=== PATIENT | female | born 1995 | race Caucasian/White ===

== ENCOUNTER 2020-01-20 00:47 | Observation (INO) | payer OTHER, SELFPAY ==
[2020-01-20] VITALS (34 sets, daily range): BP systolic 107–148; BP diastolic 58–85; PULSE 62–116; RESP 5–92; TEMP 36.2–38.1; O2SAT 92–100; BMI 44.1
--- NOTE | 2020-01-20 | PATH_ITS ---
[facility] Accession Number: [id number] . 01 Material submitted: . appendix - APPENDIX . 01 Clinical history: . VOMITING, CHEST PAIN BELOW RIBS AND UPPER BACK . 02 Diagnosis: Appendix, Appendectomy: Acute suppurative appendicitis with serositis. Negative for dysplasia and malignancy. V 01/24/2020 1245 Local . 02 Electronically signed: . Marleny Coreas MD, Pathologist NPI- [id number] . 01 Gross description: . Specimen A is received in formalin, labeled with patient identification and appendix. It consists of a vermiform appendix measuring 6.0 cm in length and 0.4 cm in diameter. The attached mesoappendiceal fat is 8.0 x 2.7 x 1.5 cm. The serosa is pink-gallardo and dull with white exudate. The proximal end is dilated up to 2.0 cm in diameter. The staple line at the proximal end is removed and the tissue is inked blue. Sectioning reveals pinpoint and patent lumen which is lined by a yellow-gallardo and mildly hemorrhagic mucosa. The wall thickness is up to 0.4 cm. The wall thickness at the dilated area is 0.2 cm. Office Specialist sections are submitted in three cassettes. . Summary of sections: A1 - proximal end shave, one piece. A2 - sales representative raw fibers cross-sections of appendix, three pieces. A3 - sales representative raw fibers bisected appendiceal tip, one piece. ([id number]) /MRV 01/23/2020 1040 Local . 02 Pathologist provided ICD-10: K35.80 . 02 CPT . 468979 Performed at: [address], [place], [place] [id number] MD Tavo Carter MD Phone: [phone] Performed at: 02 [facility] [address] [place] [id number] MD Marleny Coreas MD Phone: [phone]
--- NOTE | 2020-01-20 01:33 | ED_ITS ---
HPI - General Adult General Chief complaint: Abdominal Pain Stated complaint: vomiting/chest pain below ribs and upper back Time Seen by Provider: 01/20/20 01:20 Source: patient Mode of arrival: Ambulatory Limitations: no limitations History of Present Illness HPI narrative: 24-year-old otherwise healthy female here for evaluation of right-sided abdominal pain, right-sided back pain radiating to her right shoulder. She states she was woken from sleep with the symptoms prior to arrival here in the ER. Has not tried anything for the symptoms prior to arrival. Has had some nausea but no vomiting. No urinary symptoms. No change in bowel habits. No prior abdominal surgeries. No shortness of breath. Never had a kidney stone in the past. Related Data Home Medications Medication Instructions Recorded Confirmed sertraline [Zoloft] 50 mg PO QDAY #0 04/20/12 Allergies Allergy/AdvReac Type Severity Reaction Status Date / Time No Known Drug Allergies Allergy Verified 01/20/20 01:11 Review of Systems Constitutional Constitutional: Denies fever(s) Cardiovascular Cardiovascular: Denies chest pain and Denies dyspnea Respiratory Respiratory: Denies dyspnea Gastrointestinal Gastrointestinal: Reports abdominal pain, Denies change in bowel habits, Reports nausea and Denies vomiting Genitourinary Genitourinary: Denies dysuria Genitourinary: Denies dysuria and Denies vaginal discharge Musculoskeletal Musculoskeletal: Reports arthralgias (Right shoulder pain) and Reports back pain (Right-sided back) Integumentary/Breasts Skin/Breast: Denies lesions and Denies rash Neurologic Neurologic: Denies behavioral changes Psychiatric Psychiatric: Denies behavioral changes Hematologic/Lymphatic Hematologic/Lymphatic: Denies easy bleeding and Denies easy bruising Allergic/Immunologic Allergic/Immunologic: Denies urticaria Patient History Medical History Healthy adult (Acute) Social History Smoking Status: Never smoker Smoking Status: Never smoker alcohol intake frequency: holidays/special occasions only Alcohol type: beer Substance Use Type: marijuana Exam Initial Vital Signs Initial Vital Signs: Vital Signs Temperature 97.9 F 01/20/20 01:05 Pulse Rate 79 01/20/20 01:05 Respiratory Rate 16 01/20/20 01:05 Blood Pressure 107/59 L 01/20/20 01:05 Pulse Oximetry 100 07/11/20 01:05 Const General: cooperative and comfortable Resp Effort & Inspection: normal respiratory effort Auscultation: clear to auscultation bilaterally Cardio Rate: regular rate Rhythm: regular rhythm GI Inspection: non-distended Palpation: soft, No firm and tender (Right upper quadrant, right-sided abdomen) Back/Spine/Pelvis Back: CVA tenderness right Skin Lesions: no lesions Rashes: no rashes Neuro General: patient alert and patient awake Cognition: normal cognition Speech: speech normal Extrem General: normal to inspection and capillary refill normal Other: Full range of motion of the right shoulder. Tenderness over the inferior portion of the right scapula Psych Appearance: grossly normal and well kempt Scores GCS Onel coma scale eye opening: Spontaneous Noel coma scale verbal response: Orientated [place] coma scale motor response: Obey commands Onel coma scale total score: 15 Course Orders Ordered: ED Orders 01/20/20 01:25 Complete Blood Count AUTO DIFF Stat Comprehensive Metabolic Panel Stat Lipase Stat Test Serum,Qual Stat 01/20/20 01:34 US abdomen limited Stat 01/20/20 02:55 CT abdomen pelvis w con Stat 01/20/20 03:46 Consult to General Surgery Urgent Sodium Chloride (Normal Saline 0.9%) 1,000 mls @ 1,000 mls/hr IV BOLUS ONE Stop: 01/20/20 03:53 Last Admin: 01/20/20 03:15 Dose: 1,000 mls/hr Documented by: CTR.[email or web address] Piperacillin/Tazobactam/Dextrose (Zosyn) 3.375 gm in 50 mls @ 100 mls/hr IV NOW ONE Stop: 01/20/20 04:15 Sodium Chloride (Normal Saline 0.9%) 1,000 mls @ 125 mls/hr IV CONT DOTTIE Morphine Sulfate (Morphine) 4 mg IV Q4HR PRN PRN Reason: Pain, Mild (1-3) Ondansetron HCl (Zofran) 4 mg IV Q4HR PRN PRN Reason: Nausea And Vomiting Discontinued Medications Morphine Sulfate (Morphine) 4 mg IV NOW ONE Stop: 01/20/20 01:35 Last Admin: 01/20/20 01:51 Dose: 4 mg Documented by: CTR.[email or web address] Ondansetron HCl (Zofran) 4 mg IV NOW ONE Stop: 01/20/20 01:35 Last Admin: 01/20/20 01:51 Dose: 4 mg Documented by: CTR.[email or web address] Vital Signs Vital signs: Vital Signs - 8 hr 01/20/20 01:05 01/20/20 02:13 01/20/20 02:50 Temperature 97.9 F Pulse Rate 79 69 Respiratory Rate 16 14 16 Blood Pressure 107/59 L 123/68 116/62 Pulse Oximetry 100 100 100 01/20/20 03:21 Temperature 98.1 F Pulse Rate 67 Respiratory Rate 16 Blood Pressure 107/58 L Pulse Oximetry 100 Medical Decision Making Lab Data Lab results reviewed: Yes I reviewed the patient's lab results. Result diagrams: 01/20/20 01:25 01/20/20 01:25 Labs: Lab Results 01/20/20 01/20/20 01/20/20 Range/Units 01:25 01:25 01:25 WBC 13.9 H (4.5-11.0) X10^3/uL RBC 3.81 L (4.0-5.2) X10^6/uL Hgb 12.2 (12.0-16.0) g/dL Hct 36.3 (36-46) % MCV 95.2 (80-100) fL MCH 31.9 (26-34) PG MCHC 33.6 (30-36) % RDW 13.0 (11.6-14.8) % Plt Count 182 (150-400) X10^3/uL Neut % (Auto) 67.5 (50-75) % Lymph % (Auto) 24.6 L (25-40) % Sunflower % (Auto) 6.0 (3-14) % Eos % (Auto) 1.4 L (2-4) % Baso % (Auto) 0.5 (0-2) % Neut # (Auto) 9400 H (1403-2413) /uL Lymph # (Auto) 3400 (0164-4482) /uL Sunflower # (Auto) 800 (0-900) /uL Eos # (Auto) 200 (0-450) /uL Baso # (Auto) 100 (0-100) /uL Sodium 138 (137-145) mmol/L Potassium 3.8 (3.4-5.1) mmol/L Chloride 104 (98-107) mmol/L Carbon Dioxide 29 (22-32) mmol/L BUN 17 (7-17) mg/dL Creatinine 0.77 (0.52-1.04) mg/dL Estimated GFR > 60.0 (>60) mL/min BUN/Creatinine Ratio 22.1 H (6-22) Glucose 114 H (70-100) mg/dL Calcium 9.3 (8.4-10.2) mg/dL Total Bilirubin 0.4 (0.2-1.3) mg/dL AST 24 (14-36) IU/L ALT 19 (<35) IU/L Alkaline Phosphatase 46 (38-126) U/L Total Protein 6.7 (6.3-8.2) g/dL Albumin 3.9 (3.5-5.0) g/dL Globulin 2.8 (1.7-4.1) g/dL Albumin/Globulin Ratio 1.4 (1.0-2.8) Lipase 83 (23-300) U/L Serum , Qual (Negative) 01/20/20 Range/Units 01:25 WBC (4.5-11.0) X10^3/uL RBC (4.0-5.2) X10^6/uL Hgb (12.0-16.0) g/dL Hct (36-46) % MCV (80-100) fL MCH (26-34) PG MCHC (30-36) % RDW (11.6-14.8) % Plt Count (150-400) X10^3/uL Neut % (Auto) (50-75) % Lymph % (Auto) (25-40) % Sunflower % (Auto) (3-14) % Eos % (Auto) (2-4) % Baso % (Auto) (0-2) % Neut # (Auto) (1075-8198) /uL Lymph # (Auto) (1628-3812) /uL Sunflower # (Auto) (0-900) /uL Eos # (Auto) (0-450) /uL Baso # (Auto) (0-100) /uL Sodium (137-145) mmol/L Potassium (3.4-5.1) mmol/L Chloride (98-107) mmol/L Carbon Dioxide (22-32) mmol/L BUN (7-17) mg/dL Creatinine (0.52-1.04) mg/dL Estimated GFR (>60) mL/min BUN/Creatinine Ratio (6-22) Glucose (70-100) mg/dL Calcium (8.4-10.2) mg/dL Total Bilirubin (0.2-1.3) mg/dL AST (14-36) IU/L ALT (<35) IU/L Alkaline Phosphatase (38-126) U/L Total Protein (6.3-8.2) g/dL Albumin (3.5-5.0) g/dL Globulin (1.7-4.1) g/dL Albumin/Globulin Ratio (1.0-2.8) Lipase (23-300) U/L Serum , Qual Negative (Negative) Urine Dip Bedside Urine Glucose Negative Bedside Urine Bilirubin - Negative Bedside Urine Ketone - Negative Urine Specific [place] 1.015 Bedside Urine Occult Blood - Negative Bedside Urine pH 6.0 Bedside Urine Protein - Negative Bedside Urine Urobilinogen - Negative Bedside Urine Nitrite - Negative Bedside Urine Leukocytes +/- 15 Esterase Point of care testing: Urine Dip Bedside Urine Glucose Negative Bedside Urine Bilirubin - Negative Bedside Urine Ketone - Negative Urine Specific [place] 1.015 Bedside Urine Occult Blood - Negative Bedside Urine pH 6.0 Bedside Urine Protein - Negative Bedside Urine Urobilinogen - Negative Bedside Urine Nitrite - Negative Bedside Urine Leukocytes +/- 15 Esterase Imaging Data US - abdomen: Radiologist's Impression: No acute findings CT scan - abdomen/pelvis: Radiologist's Impression: Large midportion of the appendix with wider periappendiceal fat stranding suspect acute appendicitis without abscess pain Subcentimeter left lower lobe pulmonary nodules. MDM Narrative Medical decision making narrative: Patient with right-sided abdominal pain. CT scan shows appears to be appendicitis. This does fit her exam and her leukocytosis. Discussed the case with with General surgery. Will admit for further evaluation treatment. Discussed the diagnosis with the patient. She expressed understanding and agreement. Discharge Plan Departure Patient Disposition: Admitted as Observation Clinical Impression: Incidental lung nodule Acute appendicitis Qualifiers: Acute appendicitis type: with localized peritonitis Appendicitis gangrene presence: without gangrene Appendicitis perforation presence: without perforation Appendicitis abscess presence: without abscess Qualified Code(s): K35.30 - Acute appendicitis with localized peritonitis, without perforation or gangrene
--- NOTE | 2020-01-20 01:34 | DI.US.S_ITS ---
PROCEDURE: US ABDOMEN LIMITED INDICATIONS: EVALUATE FOR GALLBLADDER PATHOLOGY TECHNIQUE: Real-time focused scanning was performed of the abdomen, with image documentation. COMPARISON: [facility], CT, CT ABDOMEN PELVIS W CON, 01/20/2020, 2:56. FINDINGS: The liver is measuring within the upper limits of normal for size at approximately 19 cm in craniocaudal dimension. The echogenicity of the liver is within normal limits. No obvious liver lesions are identified. No intrahepatic or extrahepatic biliary dilatation is evident. The common bile duct is measuring within the upper limits of normal for size the port each approximately 6 mm. The gallbladder is within normal limits without cholelithiasis or evidence of gallbladder wall inflammation. The patient did not exhibit a positive sonographic Kang sign. Imaged portions of the pancreas and right kidney are unremarkable. No free fluid is seen within the upper abdomen. IMPRESSION: 1. Upper normal sized common bile duct without cholelithiasis of the gallbladder or evidence of acute cholecystitis. 2. Mild enlargement of the liver. Note: The preliminary report provided by [employer] is concordant with the final report. Dictated by: Robert Gill M.D. on 01/20/2020 at 7:31 Approved by: Robert Gill M.D. on 01/20/2020 at 7:33
[2020-01-20 01:38] LABS: Add Manual Diff / Slide Review NO; Basophils Absolute Auto 100 /uL (0-100); Basophils Percent Auto 0.5 % (0-2); Eosinophils Absolute Auto 200 /uL (0-450); Eosinophils Percent Auto 1.4 % (2-4); Hematocrit 36.3 % (36-46); Hemoglobin 12.2 g/dL (12.0-16.0); Lymphocytes Absolute Auto 3400 /uL (1100-4500); Lymphocytes Percent Auto 24.6 % (25-40); Mean Corpuscular HGB Conc 33.6 % (30-36); Mean Corpuscular Hemoglobin 31.9 PG (26-34); Mean Corpuscular Volume 95.2 fL (80-100); Monocytes Absolute Auto 800 /uL (0-900); Neutrophils Absolute Auto 9400 /uL (1500-7000); Neutrophils Percent Auto 67.5 % (50-75); Platelet Count 182 X10^3/uL (150-400); Red Blood Cell Count 3.81 X10^6/uL (4.0-5.2); White Blood Cell Count 13.9 X10^3/uL (4.5-11.0)
[2020-01-20] MEDS: MORPHINE 4 MG/ML INJ IV (01:51)
[2020-01-20] MEDS: ONDANSETRON 4 MG/2 ML INJ IV ×3 (01:51→14:30)
[2020-01-20 01:52] LABS: Pregnancy Test Serum,Qual Negative (Negative)
[2020-01-20 01:53] LABS: Lipase 83 U/L (23-300)
[2020-01-20 01:57] LABS: Alanine Aminotransferase 19 IU/L (<35); Albumin 3.9 g/dL (3.5-5.0); Albumin Globulin Ratio 1.4 (1.0-2.8); Alkaline Phosphatase 46 U/L (38-126); Aspartate Aminotransferase 24 IU/L (14-36); BUN Creatinine Ratio 22.1 (6-22); Bilirubin Total 0.4 mg/dL (0.2-1.3); Blood Urea Nitrogen 17 mg/dL (7-17); Calcium 9.3 mg/dL (8.4-10.2); Carbon Dioxide 29 mmol/L (22-32); Chloride 104 mmol/L (98-107); Estimated Glomerular Filt Rate > 60.0 mL/min (>60); Globulin 2.8 g/dL (1.7-4.1); Glucose 114 mg/dL (70-100); HEMOLYSIS < 15 (0-50); Potassium 3.8 mmol/L (3.4-5.1); Sodium 138 mmol/L (137-145); Total Protein 6.7 g/dL (6.3-8.2)
--- NOTE | 2020-01-20 02:55 | DI.CT.S_ITS ---
PROCEDURE: CT ABDOMEN PELVIS W CON INDICATIONS: Right-sided abdominal pain, eval for appendicitis TECHNIQUE: After the administration of oral and intravenous contrast, 5 mm thick sections acquired from the diaphragms to the symphysis. 5 mm thick coronal and sagittal reformats were performed. For radiation dose reduction, the following was used: automated exposure control, adjustment of mA and/or kV according to patient size. COMPARISON: [facility], , ABDOMEN LIMITED, 01/20/2020, 2:02. FINDINGS: Image quality: Diagnostic. ABDOMEN: Lung bases: Lung bases are clear. Heart size is normal. There is a small subpleural pulmonary nodule identified within the lingula, measuring approximately 4 mm in diameter (image 1, series 2). An additional small subpleural pulmonary nodule is evident within the posterior left lower lobe that measures approximately 3 mm in diameter (image 12, series 3). Solid organs: The liver measures approximately 19 cm in craniocaudal dimension, which is mildly enlarged. No focal liver lesions are identified. No intrahepatic or extrahepatic biliary dilatation is appreciated. The gallbladder is within normal limits without gallbladder wall inflammation. Biliary system is non-dilated. Pancreas enhances normally. Spleen is normal in size and enhancement. No adrenal nodules. Kidneys are normal in size and enhancement, without hydronephrosis. Peritoneum and bowel: The stomach, duodenum, and remainder of the small bowel loops are within normal limits. No significant small bowel dilatation is evident. The appendix is well-visualized and appears to be normal in size. There is slight increased density evident within the mesentery adjacent to the appendix. Air is contained within the appendix. There is a large amount of stool identified throughout the colon. No mesenteric inflammation is appreciated. There is no free fluid, loculated fluid collection, or free air. Nodes and vessels: No retroperitoneal or mesenteric adenopathy. Small mesenteric lymph nodes are incidentally noted. Aorta and inferior vena cava are normal in caliber. A retroaortic left renal vein is incidentally noted. Bones: No acute fracture or suspicious osseous lesion is identified. PELVIS: Genitourinary: Bladder wall thickness is normal. The uterus and ovaries are not adequately characterized on CT, but do not appear to be enlarged. Miscellaneous: No inguinal hernias or adenopathy. No free fluid or loculated fluid collection is identified. No free air is evident. Bones: No suspicious bony lesions. No acute pelvic fractures. IMPRESSION: 1. No acute abnormality within the abdomen or pelvis. 2. Probable constipation. No bowel obstruction. 3. The appendix probably is within normal limits. Slight edema adjacent to the appendix is of doubtful significance. However, early appendicitis cannot be completely excluded and clinical correlation is recommended. 4. Mild enlargement of the liver. 5. Probable minimal scarring versus less likely small pulmonary nodules within the left lung base. The need for follow up imaging may be determined clinically. Note: The preliminary report provided by [facility] [employer] is concordant with the final report. Dictated by: Robert Gill M.D. on 01/20/2020 at 7:33 Approved by: Robert Gill M.D. on 01/20/2020 at 7:40
[2020-01-20] MEDS: SODIUM CHLORIDE 0.9% 1,000 ML 1000 ML IV (03:15)
[2020-01-20] MEDS: SODIUM CHLORIDE 0.9% 1,000 ML 125 ML IV (04:35)
[2020-01-20] MEDS: PIPERACILLIN-TAZO 3.375 GM/50 ML FROZ.PIGGY IV ×3 (04:36→16:56)
--- NOTE | 2020-01-20 04:56 | PC.ADMIT ---
[address] Admission Note:Pt arrived to unit 0430 without issues. Denies any abdominal pain at this time, only tenderness. SBA. Voiding to toilet without issues. Pt s/o at bedside. Skin check done with NIKIA Garcia. Pt has no complaints at this time The patient,Angelina Delarosa,24 y/o, was given written information regarding hospital policies, unit procedures and contact persons. Patient's smoking status: Never smoker. Vital Signs - 8 hr 01/20/20 01:05 01/20/20 02:13 01/20/20 02:50 Temperature 97.9 F Pulse Rate 79 69 Respiratory Rate 16 14 16 Blood Pressure 107/59 L 123/68 116/62 Pulse Oximetry 100 100 100 01/20/20 03:21 01/20/20 04:42 Temperature 98.1 F 98.7 F Pulse Rate 67 69 Respiratory Rate 16 18 Blood Pressure 107/58 L 123/60 Pulse Oximetry 100 100
[2020-01-20 05:15] LABS: COVID19 -Nasal RAPID Negative (Negative)
--- NOTE | 2020-01-20 08:47 | P.HP_ITS ---
History of Present Illness History of Present Illness Date Patient Seen: 01/20/20 Time Patient Seen: 08:48 Chief complaint: vomiting/chest pain below ribs and upper back Narrative: 24-year-old white female who with a 12 hour onset of generalized abdominal pain now centered in the right abdomen actually some in the right upper quadrant and some in the right lower quadrant. She was evaluated in the emergency department and middle night and I was called at 4:00 a.m. this morning she had ultrasound of the gallbladder which was normal and she had a CT scan revealing acute uncomplicated appendicitis she is brought in for intravenous IV fluids IV antibiotic therapy and laparoscopic appendectomy given that she has morbid obesity we will use the laparoscoped Patient History Medical History Healthy adult (Acute) Family & Social History Social History: household members significant other,family Prior Living Arrangements House Safety & Behavioral: Feels Safe in Current Yes Environment Been Physically Hurt or No Threatened By a Person Suicidal Ideation Description None Suicide Plan Description No Plan Tobacco & Substance use: Smoking Status Never smoker alcohol intake frequency holiday/special occasion Substance Use Type marijuana Meds Home Medications and Allergies Home Medications Medication Instructions Recorded Confirmed Type norgestimate-ethinyl estradiol 1 tab PO DAILY 01/20/20 01/20/20 History [Marija] Allergies Allergy/AdvReac Type Severity Reaction Status Date / Time No Known Drug Allergies Allergy Verified 01/20/20 01:11 Exam Vital Signs (past 8 hours): - 01/20/20 01:05 01/20/20 02:13 01/20/20 02:50 Temperature 97.9 F Pulse Rate 79 69 Respiratory Rate 16 14 16 Blood Pressure 107/59 L 123/68 116/62 Pulse Oximetry 100 100 100 01/20/20 03:21 01/20/20 04:42 01/20/20 08:25 Temperature 98.1 F 98.7 F 98.4 F Pulse Rate 67 69 67 Respiratory Rate 16 18 14 Blood Pressure 107/58 L 123/60 125/71 Pulse Oximetry 100 100 100 01/20/20 08:42 Temperature 97.8 F Pulse Rate 82 Respiratory Rate 18 Blood Pressure 124/77 Pulse Oximetry 99 Oxygen Delivery Method Room Air Oxygen Flow Rate 0 Narrative Exam Narrative: Patient is resting in bed with moderate right-sided abdominal pain no vomiting Lungs are clear with no rales or wheezes Heart regular rhythm no murmur Abdomen tender in the right side right paraumbilical and right lower quadrant. No masses are palpated. She is morbidly obese making abdominal exam quite diff icult. BMI is 44. Extremities are normal Pelvic is deferred. Objective Labs Result Diagrams: 01/20/20 01:25 01/20/20 01:25 Labs: Laboratory Results - last 24 hr 01/20/20 01/20/20 01/20/20 01:25 01:25 01:25 WBC 13.9 H RBC 3.81 L Hgb 12.2 Hct 36.3 MCV 95.2 MCH 31.9 MCHC 33.6 RDW 13.0 Plt Count 182 Neut % (Auto) 67.5 Lymph % (Auto) 24.6 L Williamson % (Auto) 6.0 Eos % (Auto) 1.4 L Baso % (Auto) 0.5 Neut # (Auto) 9400 H Lymph # (Auto) 3400 Williamson # (Auto) 800 Eos # (Auto) 200 Baso # (Auto) 100 Sodium 138 Potassium 3.8 Chloride 104 Carbon Dioxide 29 BUN 17 Creatinine 0.77 Estimated GFR > 60.0 BUN/Creatinine Ratio 22.1 H Glucose 114 H Calcium 9.3 Total Bilirubin 0.4 AST 24 ALT 19 Alkaline Phosphatase 46 Total Protein 6.7 Albumin 3.9 Globulin 2.8 Albumin/Globulin Ratio 1.4 Lipase 83 Serum , Qual Nasal Screen MRSA (PCR) COVID-19 PCR 01/20/20 01/20/20 01/20/20 01:25 04:15 04:37 WBC RBC Hgb Hct MCV MCH MCHC RDW Plt Count Neut % (Auto) Lymph % (Auto) Williamson % (Auto) Eos % (Auto) Baso % (Auto) Neut # (Auto) Lymph # (Auto) Williamson # (Auto) Eos # (Auto) Baso # (Auto) Sodium Potassium Chloride Carbon Dioxide BUN Creatinine Estimated GFR BUN/Creatinine Ratio Glucose Calcium Total Bilirubin AST ALT Alkaline Phosphatase Total Protein Albumin Globulin Albumin/Globulin Ratio Lipase Serum , Qual Negative Nasal Screen MRSA (PCR) Negative for mrsa COVID-19 PCR Negative Assessment & Plan Assessment & Plan narrative: Patient has imaging confirmation of acute uncomplicated appendicitis without abscess formation. She understands that laparoscopic appendectomy is recommended and agrees without further questions. She has received preoperative Zosyn. Quality VTE Deep Vein Thrombosis/Pulmonary Embolism Present on Admission: No
[2020-01-20] MEDS: ACETAMINOPHEN 325 MG TABLET 975 MG PO (08:58)
[2020-01-20] MEDS: GABAPENTIN 300 MG CAPSULE PO (08:59)
[2020-01-20] MEDS: SCOPOLAMINE 1 PATCH TOP (08:59)
[2020-01-20] MEDS: LACTATED RINGERS 1,000 ML 42 ML IV (09:28)
[2020-01-20] MEDS: BACITRACIN OINT 0.9 GM PCKT 1 APPLIC TOP ×2 (09:35→09:54)
[2020-01-20] MEDS: BUPIVACAINE 0.5% W/ EPI (PF) 10 ML VIAL 30 ML INJ (09:53)
--- NOTE | 2020-01-20 10:22 | P.OP_ITS ---
Operative Date/Time/Diagnoses Date of procedure: 01/20/20 Time of procedure: 10:23 Pre-op diagnosis: Acute appendicitis Post-op diagnosis: same Procedure & Clinicians Procedure: Laparoscopic appendectomy Same procedure as scheduled: Yes Indications: Acute uncomplicated appendicitis Surgeon: Turner Guevara Click Yes if Unassisted: Yes Anesthesia Type: General Operative Notes Findings: Acute uncomplicated appendicitis Closure Type: primary Specimen(s): other (Appendix) Estimated Blood Loss (mL): 20 Blood products transfused: none Procedure in detail: The patient was properly identified during surgical pause prepped and draped in a sterile fashion exposure of the mid abdomen. She was under general endotracheal anesthesia. 5 mm incision made above and to the right of the umbilicus. Optiview bladeless port was inserted under direct vision and a pneumoperitoneum safely established without evidence of visceral injury. Two additional ports were placed in the 11 mm to the left of the umbilicus and a 5 mm port in the left lower quadrant near the pelvis. These ports were placed under direct vision. Patient placed in Trendelenburg rotated to her left and the cecum rotated into the wound the appendix isolated and identified and was found to be involved with acute appendicitis without abscess. I made a window in the mesoappendix close to the cecum and placed a Endo Path stapling device Endo-MICHAEL made by [employer] and fired across the base of the appendix with a blue staple load. The shanika were mangled and nonfunctional. I obtained a new stapler with a new staple load fired across the base the appendix and had the same result with mangled dysfunctional shanika. I obtained a 3rd Endo Path stapler and was able to complete stapling across the base of the cecum completely closing off the juncture with the appendix but re moving a very tiny portion of cecum in order to attain closure of the bowel. Using that same stapler than with an arterial vascular load I closed the mesoappendix successfully. There was no bleeding no evidence of bowel leakage. I removed the appendix through the 11 mm port in an Endo cath Endo catch bag. 11 mm port was replaced and I thoroughly irrigated the right lower quadrant with a L of sterile saline aspirated dry there was no bleeding and all staple lines were intact. Trocars removed under direct vision there was no bleeding subcutaneous bupivacaine was administered and the skin closed with shanika in all 3 incisions sterile dressings applied procedures well-tolerated . Complications: none
--- NOTE | 2020-01-20 10:26 | SUR.OPER ---
Supine on padded OR bed, head on pillow, arms secured on padded arm boards at <90 degrees abduction, legs uncrossed, safety belt at thigh, tape over blanket over lower legs.
[2020-01-20] MEDS: MEPERIDINE 50 MG/ML INJ 12.5 MG IV ×2 (10:33→10:38)
--- NOTE | 2020-01-20 10:37 | PC.NURSE ---
Addendum entered by Belinda Wilde R.N. 01/20/20 14:37: Medicated with Percocet and Zofran. D51/2 NS infusing. 1PA to BR. Addendum entered by Belinda Wilde R.N. 01/20/20 11:43: Pt arrived back to room 229 from PACU @ 1120. Denies nausea or pain at present. If I move maybe a 3/10 Denies at rest. Scop patch in place. Petra pond provided, PLAN for Pt to stay overnight to monitor nausea/pain control. Original Note: Pt off floor to OR @ 0830. SO at bedside.
--- NOTE | 2020-01-20 10:57 | SUR.PHASEI ---
Pt gradually awoke, emotional when first awakened, support given, pt with shakes, teeth chattering, warm blankets and bare hugger placed on pt, pt still with shakes. Medicated with Demerol, shakes resolved, had also been c/o pain and pain relived with meds given for shakes. Pt then nauseated, ondansetron given, queaze to bedside and cool wash cloth to head. Pt no longer nauseated and continues with ice chips.
--- NOTE | 2020-01-20 11:27 | SUR.PHASEI ---
Late entry: report to daniel, pt transported up to room on room air. Bed down, locked and callbell in hand. Pt left in stable condition.
[2020-01-20] MEDS: OXYCODONE/ACETAMINOPHEN 5/325 TABLET 1 TAB PO ×2 (12:20→23:45)
[2020-01-20] MEDS: DEXTROSE 5%-0.45% NS 1,000 ML 100 ML IV ×2 (13:58→23:44)
--- NOTE | 2020-01-20 15:49 | CM.DANOTE ---
Addendum entered by Myrna Grijalva LPN 01/20/20 15:58: Met now with pt and her duong Rodrigues. Both confirm that they live in a household of 7 extended family members including her mother so pt says she feels very well supported. Pt says she will need a note from Dr. Guevara stating how long she will need to be off work so she can take this to her employer (works at [employer]). She is advised to ask Dr. Guevara for this tomorrow when he sees her. Anticipate pt will likely d/c tomorrow but is unclear at his time. Original Note: Discharge Planning/Care Management DCP: assessment: case received, EMR reviewed and met with pt. Introduced self and role. Pt is a 24 year old female who admitted early this morning to care of [facility]: Dr. Guevara. Payer: [employer] Admission status: OBS: confirmed by UR NIKIA Gibbs Pt diagnosed with acute appendicitis and was taken today to surgery: Laproscopic appendectomy with accommodation for morbid obesity, per Dr. Guevara's notes. Pt arrived back to room 229 this afternoon. CM Discharge Assessment Start: 01/20/20 15:48 Freq: Status: Active Protocol: Document 01/20/20 15:48 ITV (Rec: 01/20/20 15:49 ITV [id number]) Discharge Planning Assessment Advance Directives? No History Provided By Patient,Medical Record Prior Living Arrangements House Household Members significant other,family Is patient alert and oriented? Yes Review Status In Process
[2020-01-21 00:49] VITALS: TEMP 36.2
[2020-01-21 03:40] VITALS: PULSE 73; O2SAT 98
[2020-01-21 03:41] VITALS: BP 117/72; PULSE 70; PULSE 80; RESP 16; TEMP 37; O2SAT 98
[2020-01-21] MEDS: PIPERACILLIN-TAZO 3.375 GM/50 ML FROZ.PIGGY IV ×2 (06:17)
--- NOTE | 2020-01-21 06:25 | PC.NURSE ---
Pt alert and oriented x4. SBA. Voiding without issues. Pain controlled with percocet, pt sleeping through most of the night. Increased temp at start of shift resolved with giving percocet. Pt has no complaints.
[2020-01-21 08:15] VITALS: BP 125/79; PULSE 79; RESP 16; TEMP 37.1; O2SAT 97
[2020-01-21] MEDS: ACETAMINOPHEN 325 MG TABLET 650 MG PO (10:02)
--- NOTE | 2020-01-21 10:31 | P.DS_ITS ---
History of Present Illness History of Present Illness Chief complaint: vomiting/chest pain below ribs and upper back Narrative: 24-year-old white female who with a 12 hour onset of generalized abdominal pain now centered in the right abdomen actually some in the right upper quadrant and some in the right lower quadrant. She was evaluated in the emergency department and middle night and I was called at 4:00 a.m. this morning she had ultrasound of the gallbladder which was normal and she had a CT scan revealing acute uncomplicated appendicitis she is brought in for intravenous IV fluids IV antibiotic therapy and laparoscopic appendectomy given that she has morbid obesity we will use the laparoscoped Discharge Providers Provider Date of admission: 01/20/20 04:06 Discharge Date: 01/21/20 Primary care physician: Laina Coon MD Consults: 01/20/20 03:46 Consult to General Surgery Urgent Comment: Consulting Provider: Turner Guevara Reason for consultation: admission Discharge provider: Turner Guevara MD Summary Hospital Course Discharge Diagnosis: Acute uncomplicated appendicitis Hospital Course: Patient was brought hospital given IV antibiotic therapy and underwent an urgent laparoscopic appendectomy. She did very well postop was observed overnight and is asymptomatic this morning able to be discharged home no medications prescribed Status at Discharge Cognitive/behavioral status at discharge: oriented Functional status at discharge: independent ambulation Overall status at discharge: patient is back to baseline Time Spent with Patient Time spent: Less than 30 minutes Exam Vital Signs (past 8 hours): - 01/21/20 03:40 01/21/20 03:41 01/21/20 08:15 Temperature 98.6 F 98.7 F Pulse Rate 73 70 79 Respiratory Rate 16 16 Blood Pressure 117/72 125/79 Pulse Oximetry 98 98 97 Oxygen Delivery Method Room Air Oxygen Flow Rate 0 Narrative Exam Narrative: Patient is afebrile has no abdominal pain Abdomen is soft Trocar sites healing nicely Objective Labs Result Diagrams: 01/20/20 01:25 01/20/20 01:25 Discharge Plan Discharge Plan Patient Disposition: Home Discharge orders & Medications Prescriptions: Continued norgestimate-ethinyl estradiol [Marija] 0.25-35 mg-mcg tablet 1 tab PO DAILY RF: 0 Follow up/Referrals: Laina Coon MD [Primary Care Provider] - Diet/Activity/Treatments Diet: Diet as Tolerated Activity: Avoid heavy lifting if abdominal pain occurs Other treatments: Called the [facility] office tomorrow for an appointment to have shanika removed . Skin/Wound/Dressing Care Skin care: Shower normally Report to your healthcare provider any signs of infection, such as:: chills, fever, night sweats, increased pain, unusual drainage and unusual redness Dressing: Band-Aids as needed Visit Report/Discharge Packet Stand Alone Forms: Work/Release Restrictions Visit Report Forms: Patient Portal/API, Stroke Signs & Symptoms Discharge Data Primary Care Provider: Laina Coon Attending Provider: Turner Guevara Admit Date/Time: 01/20/20 04:06 Quality VTE Deep Vein Thrombosis/Pulmonary Embolism Present on Admission: No
--- NOTE | 2020-01-21 11:05 | PC.NURSE ---
Pt to dc home per MD order. Pt's mom at bedside for dc teaching. Provided dc packet. Education given re appendectomy, s/s of post op wound infx, diet, activity parameters, medications, need for f/u appt. Provided return to work slip signed by Dr. Guevara. Pt and mom verbalize understanding of dc teaching. Both state they have no questions at this time. Pt dressed self and transferred independently to w/c. All belongings gathered. Pt escorted to POV by CLINIC CLERK in no distress with all belongings at 11:11.
--- NOTE | 2020-01-25 19:12 | PC.NURSE ---
Late Entry: Zosyn infusion initiated at 04:36 on 01/19 complete at 05:06.
== END 2020-01-21 11:11 | disposition home or self-care (01) ==
LOC: ED 03:45 → ICU 12:57
PROVIDERS: Admitting Provider Surgery; Emergency Provider Emergency Medicine; PCP Student in an Organized Health Care Education/Training Program; Referring Provider Surgery; Visit Provider Surgery
PROC: (CPT 44950; principal; 2020-01-20 08:15)
DX: R10.11 Right upper quadrant pain (principal); K35.80 Unspecified acute appendicitis; Z11.59 Encounter for screening for other viral diseases
CPT/HCPCS: 44970; 36415; 74177; 76705; 80053; 81003; 83690; 84703; 85025; 87635; 87797; 96361; 96365; 96366; 96375; 96376; 99219; 99284; G0378; J0330; J1100; J1885; J2175; J2250; J2270; J2405; J2543; J2704; J3010; Q9967

== ENCOUNTER → 2020-08-21 10:40 | Outpatient (CLI) | payer OTHER, SELFPAY ==
[2020-01-20 04:39] VITALS: BMI 44.1
--- NOTE | 2020-08-21 | DI.US.S_ITS ---
PROCEDURE: US OB <= 14 WEEKS FETUS INDICATIONS: SIZE AND DATES OUTSIDE/PRIOR DATING DATA: Last menstrual period (LMP): 07/09/2020. LMP-based estimated date of delivery (CECILIA): 04/15/2021. First dating scan (date and location): 08/21/2020 Estimated date of delivery (CECILIA) from first dating scan: Not applicable. TECHNIQUE: Real-time scanning was performed of the fetus and maternal pelvic organs, with image documentation. Endovaginal scanning was also performed to better visualize the fetus and maternal ovaries. COMPARISON: None. FINDINGS: Embryo: Intrauterine gestational sac is identified measuring 9 mm corresponding to 5 weeks 5 days. Yolk sac is identified. No pole or heart tones are identified. Measurement variability in dating: +/- 4 weeks by LMP, +/- 7 days by mean sac diameter (use before 6 weeks gestation if crown-rump length not able to be measured), +/- 5 days by crown-rump length (up to 8 weeks 6 days gestation), +/- 7 days by crown-rump length (up to 13 weeks 6 days gestation). Maternal organs: Ovaries demonstrate a right corpus luteal cyst. IMPRESSION: 1. Intrauterine gestational sac measuring 5 weeks 5 days. No pole or heart tones are identified. Short interval imaging follow-up with correlation to beta HCG levels is recommended. Dictated by: Holly Berg M.D. on 08/21/2020 at 13:23 Approved by: Holly Berg M.D. on 08/21/2020 at 13:24
== END ==
PROVIDERS: PCP Student in an Organized Health Care Education/Training Program; Referring Provider Student in an Organized Health Care Education/Training Program; Visit Provider Student in an Organized Health Care Education/Training Program
DX: Z36.87 Encounter for antenatal screening for uncertain dates (principal); O34.81 Maternal care for other abnormalities of pelvic organs, first trimester; N83.11 Corpus luteum cyst of right ovary; Z3A.01 Less than 8 weeks gestation of pregnancy
CPT/HCPCS: 76801; 76817

== ENCOUNTER → 2020-09-18 14:08 | Outpatient (CLI) | payer OTHER, SELFPAY ==
[2020-01-20 04:39] VITALS: BMI 44.1
--- NOTE | 2020-09-18 14:10 | DI.US.S_ITS ---
PROCEDURE: US OB <= 14 WEEKS FETUS INDICATIONS: REPEAT SIZE AND DATES OUTSIDE/PRIOR DATING DATA: Last menstrual period (LMP): 07/09/20 LMP-based estimated date of delivery (CECILIA): 04/15/21. First dating scan (date and location): 08/21/20, current gestational sac identified, no pole at that time.. Estimated date of delivery (CECILIA) from first dating scan: 04/18/21, +/-7 days, from 1st OB ultrasound.. TECHNIQUE: Real-time scanning was performed of the fetus and maternal pelvic organs, with image documentation. Endovaginal scanning was also performed to better visualize the fetus and maternal ovaries. COMPARISON: [facility], , OB <= 14 WEEKS FETUS, 08/21/2020, 11:09. FINDINGS: Embryo: [place]-rump length now can be visualized measuring 3.2 cm which correlates with a gestational age of 10 weeks 0 days, +/-5 days. heart rate at 162 beats per minute is present. Measurement variability in dating: +/- 4 weeks by LMP, +/- 7 days by mean sac diameter (use before 6 weeks gestation if crown-rump length not able to be measured), +/- 5 days by crown-rump length (up to 8 weeks 6 days gestation), +/- 7 days by crown-rump length (up to 13 weeks 6 days gestation). Maternal organs: Ovaries normal considering gestational status. . IMPRESSION: Single living intrauterine gestation, with cardiac activity observed and with delivery date projected to be centered on 04/18/21 +/-7 days from 1st OB ultrasound at which time only a gestational sac could be observed. The current study allows visualization of the crown-rump length, and projected from this measurement the delivery date would be centered on 04/16/21, +/-5 days. Dictated by: Jacky Valdovinos M.D. on 09/18/2020 at 15:44 Approved by: Jacky Valdovinos M.D. on 09/18/2020 at 15:47
== END ==
PROVIDERS: PCP Student in an Organized Health Care Education/Training Program; Referring Provider Student in an Organized Health Care Education/Training Program; Visit Provider Student in an Organized Health Care Education/Training Program
DX: Z36.87 Encounter for antenatal screening for uncertain dates (principal); Z3A.10 10 weeks gestation of pregnancy
CPT/HCPCS: 76801; 76817

== ENCOUNTER → 2020-10-18 09:40 | Outpatient (CLI) | payer OTHER, SELFPAY ==
[2020-01-20 04:39] VITALS: BMI 44.1
--- NOTE | 2020-10-18 09:43 | DI.US.S_ITS ---
PROCEDURE: US OB LIMITED INDICATIONS: GROWTH AND DATES. DECREASED HEART RATE. OUTSIDE/PRIOR DATING DATA: Last menstrual period (LMP): July 09, 2020. LMP-based estimated date of delivery (CECILIA): April 15, 2021. First dating scan (date and location): August 21, 2020. Estimated date of delivery (CECILIA) from first dating scan: April 18, 2021. TECHNIQUE: Real-time scanning was performed of the fetus, with image documentation. Endovaginal scanning: For 4 COMPARISON: [facility], OB <= 14 WEEKS FETUS, 09/18/2020, 14:34. [facility], OB <= 14 WEEKS FETUS, 08/21/2020, 11:09. FINDINGS: A single living intrauterine gestation is present. Presentation: Variable Placenta: Placental position is anterior, without previa. Amniotic fluid index: Not measured. heart rate: 155 beats per minute. Maternal cervical canal: Closed and 3.7 cm long. Normal lower limit is 2.5 cm. BPD: 14 weeks 3 days HC: 14 weeks 4 days AC: 14 weeks 6 days FL: 13 weeks 5 days Estimated gestational age from initial scan: 14 weeks 2 days. Composite gestational age based on current study: 14 weeks 3 days IMPRESSION: 1. Single living intrauterine gestation with appropriate interval growth. 2. Expected gestational age based on initial ultrasound 14 weeks 2 days with composite gestational age based on current study of 14 weeks 3 days. 3. heart rate measured at 155 beats per minute. Dictated by: Cecilia Marti MD, PhD on 10/18/2020 at 16:57 Approved by: Cecilia Marti MD, PhD on 10/18/2020 at 17:00
== END ==
PROVIDERS: PCP Student in an Organized Health Care Education/Training Program; Referring Provider Student in an Organized Health Care Education/Training Program; Visit Provider Student in an Organized Health Care Education/Training Program
DX: Z34.92 Encounter for supervision of normal pregnancy, unspecified, second trimester (principal); Z3A.14 14 weeks gestation of pregnancy
CPT/HCPCS: 76815

== ENCOUNTER → 2020-11-27 15:40 | Outpatient (CLI) | payer OTHER, MEDICAID, SELFPAY ==
[2020-01-20 04:39] VITALS: BMI 44.1
--- NOTE | 2020-11-27 | DI.US.S_ITS ---
PROCEDURE: US OB >= 14 WEEKS FETUS INDICATIONS: ANATOMY SCAN OUTSIDE/PRIOR DATING DATA: Last menstrual period (LMP): 07/09/20 . LMP-based estimated date of delivery (CECILIA): 04/15/21 . First dating scan (date and location): 09/18/20 . Estimated date of delivery (CECILIA) from first dating scan: 04/16/21 . TECHNIQUE: Real-time scanning was performed of the fetus, with image documentation and biometric measurements. Endovaginal scanning: Not performed COMPARISON: [facility], OB LIMITED, 10/18/2020, 10:34. [facility] OB <= 14 WEEKS FETUS, 09/18/2020, 14:34. [facility] OB <= 14 WEEKS FETUS, 08/21/2020, 11:09. FINDINGS: General: A single living intrauterine gestation is present. Presentation: Breech. Placenta: Placental position is anterior , without previa. Amniotic fluid index: 14.8 cm, normal range is 5-24 cm. Largest pocket measures 4.1 cm heart rate: 150 beats per minute. Maternal cervical canal: 4.5 cm long. Normal lower limit is 2.5 cm. biometrics: Biparietal diameter: 4.8 cm, 20 weeks 3 days Head circumference: 17.5 cm, 20 weeks 0 days Abdominal circumference: 14.9 cm, 20 weeks 1 day Femur length: 3.2 cm, 20 weeks 0 days Estimated gestational age from initial scan: 20 weeks 0 days Composite gestational age from present scan: 20 weeks 1 day Estimated weight and percentile: 332 g, 51st percentile Measurement variability for biometric dating: +/- 7 days from 14 weeks to 15 weeks 6 days gestation, +/- 10 days from 16 weeks to 21 weeks 6 days gestation, +/- 2 weeks from 22 weeks to 27 weeks 6 days gestation, +/- 3 weeks for 28 weeks gestation or later. weight reference: 4500 g or EFW >90/95% is considered macrosomia or large for gestational age. EFW <10% is small for gestational age. EFW 5% or less is considered intra-uterine growth restriction. Anatomic survey: Neuro: Ventricles are non-dilated at less than 10 mm. Cisterna magna is normal at 3-11 mm. Cerebellum is normal in size and morphology. Nuchal skin fold: Normal at less than 6 mm between 14-21 weeks gestational age. Face: Nose and lips, facial profile are normal. Spine: No evidence for spina bifida. Heart: 4-chambered heart is present, with normal ventricular outflow tracts. Diaphragm: Diaphragm is intact. Stomach: Left-sided stomach is present. Kidneys: No hydronephrosis. Normal is less than 5 mm in 2nd trimester, less than 7 mm in 3rd trimester. Cord: 3-vessel cord has orthotopic insertion. Bladder: Normal in size. Extremities: All 4 extremities identified. IMPRESSION: Single living intrauterine fetus in breech presentation. Expected interval growth. Normal anatomic survey Dictated by: Ash Clark M.D. on 11/28/2020 at 14:31 Approved by: Ash Clark M.D. on 11/28/2020 at 14:34
== END ==
PROVIDERS: PCP Student in an Organized Health Care Education/Training Program; Referring Provider Student in an Organized Health Care Education/Training Program; Visit Provider Student in an Organized Health Care Education/Training Program
DX: Z36.89 Encounter for other specified antenatal screening (principal); Z3A.20 20 weeks gestation of pregnancy
CPT/HCPCS: 76811

== ENCOUNTER → 2021-02-26 15:42 | Outpatient (CLI) | payer OTHER, MEDICAID, SELFPAY ==
[2020-01-20 04:39] VITALS: BMI 44.1
--- NOTE | 2021-02-26 | DI.US.S_ITS ---
PROCEDURE: US OB LIMITED INDICATIONS: GROWTH AND DATES OUTSIDE/PRIOR DATING DATA: Last menstrual period (LMP): 07/09/2020. LMP-based estimated date of delivery (CECILIA): 04/15/2021 . First dating scan (date and location): 09/18/2020 . Estimated date of delivery (CECILIA) from first dating scan: 04/16/2021 . TECHNIQUE: Real-time scanning was performed of the fetus, with image documentation and biometric measurements. Endovaginal scanning: No COMPARISON: [facility], OB LIMITED, 10/18/2020, 10:34. FINDINGS: General: A single living intrauterine gestation is present. Presentation: Vertex. Placenta: Placental position is anterior , without previa. Amniotic fluid index: 15.2 cm, normal range is 5-24 cm. heart rate: 141 beats per minute. Maternal cervical canal: 3.6 cm long. Normal lower limit is 2.5 cm. biometrics: Biparietal diameter: 36 weeks 6 days Head circumference: 35 weeks 4 days Abdominal circumference: 33 weeks 1 day Femur length: 34 weeks Estimated gestational age from initial scan: 33 weeks Composite gestational age from present scan: 34 weeks 6 days Estimated weight and percentile: 2325 g; 72 percentile. Measurement variability for biometric dating: +/- 7 days from 14 weeks to 15 weeks 6 days gestation, +/- 10 days from 16 weeks to 21 weeks 6 days gestation, +/- 2 weeks from 22 weeks to 27 weeks 6 days gestation, +/- 3 weeks for 28 weeks gestation or later. weight reference: 4500 g or EFW >90/95% is considered macrosomia or large for gestational age. EFW <10% is small for gestational age. EFW 5% or less is considered intra-uterine growth restriction. Other: Not applicable. IMPRESSION: Single living IUP redemonstrated and interval growth is normal. Dictated by: Pola CHERY Interpreted: Jacky Valdovinos MD on 02/26/2021 at 16:21 Transcribed by: JOANNE on 02/26/2021 at 16:23 Approved by: Jacky Valdovinos M.D. on 02/26/2021 at 17:23
== END ==
PROVIDERS: PCP Student in an Organized Health Care Education/Training Program; Referring Provider Student in an Organized Health Care Education/Training Program; Visit Provider Student in an Organized Health Care Education/Training Program
DX: Z3A.34 34 weeks gestation of pregnancy; Z36.87 Encounter for antenatal screening for uncertain dates
CPT/HCPCS: 76815; 76817

== ENCOUNTER → 2021-03-26 13:22 | Outpatient (ROUT) | payer OTHER, MEDICAID, SELFPAY ==
[2020-01-20 04:39] VITALS: BMI 44.1
== END ==
PROVIDERS: PCP Student in an Organized Health Care Education/Training Program; Visit Provider Student in an Organized Health Care Education/Training Program
DX: Z34.01 Encounter for supervision of normal first pregnancy, first trimester (principal)
CPT/HCPCS: 87081; 87147

== ENCOUNTER 2021-04-08 12:53 | Outpatient (CLI) | payer OTHER, MEDICAID, SELFPAY ==
[2020-01-20 04:39] VITALS: BMI 44.1
== END 2021-04-08 14:55 | disposition home or self-care (01) ==
LOC: LABOR 14:45 → OB 04-09 11:32
PROVIDERS: PCP Student in an Organized Health Care Education/Training Program; Referring Provider Student in an Organized Health Care Education/Training Program; Visit Provider Student in an Organized Health Care Education/Training Program
DX: O26.893 Other specified pregnancy related conditions, third trimester (principal); M54.9 Dorsalgia, unspecified; R11.10 Vomiting, unspecified; Z3A.38 38 weeks gestation of pregnancy
CPT/HCPCS: 59025; G0378; G0379

== ENCOUNTER 2021-04-16 15:11 | Outpatient (CLI) | payer OTHER, MEDICAID, SELFPAY ==
[2020-01-20 04:39] VITALS: BMI 44.1
== END 2021-04-16 15:45 | disposition home or self-care (01) ==
LOC: OB 04-22 03:09
PROVIDERS: PCP Student in an Organized Health Care Education/Training Program; Referring Provider Student in an Organized Health Care Education/Training Program; Visit Provider Student in an Organized Health Care Education/Training Program
DX: O48.0 Post-term pregnancy (principal); Z3A.40 40 weeks gestation of pregnancy
CPT/HCPCS: 59025; G0378; G0379

== ENCOUNTER 2021-04-20 10:51 | Observation (INO) | payer OTHER, MEDICAID, SELFPAY ==
[2020-01-20 04:39] VITALS: BMI 44.1
[2021-04-20 10:58] VITALS: BP 134/82
== END 2021-04-20 15:00 | disposition home or self-care (01) ==
PROVIDERS: Admitting Provider Student in an Organized Health Care Education/Training Program; PCP Student in an Organized Health Care Education/Training Program; Referring Provider Student in an Organized Health Care Education/Training Program; Visit Provider Student in an Organized Health Care Education/Training Program
DX: O48.0 Post-term pregnancy (principal); O99.213 Obesity complicating pregnancy, third trimester; Z3A.40 40 weeks gestation of pregnancy
CPT/HCPCS: 59025; G0378; G0379

== ENCOUNTER 2021-04-20 20:27 | Inpatient (IN) | payer OTHER, MEDICAID, SELFPAY ==
[2020-01-20 04:39] VITALS: BMI 44.1
--- NOTE | 2021-04-20 21:09 | P.HPOB_ITS ---
OB HPI Date/Time Date of admission: 04/20/21 Date Patient Seen: 04/20/21 Time Patient Seen: 21:09 History of Present Condition Chief complaint: OBS Narrative: Angelina Delarosa is a 25 year old at 40w4d with CECILIA of 04/16/21 per first trimester ultrasound. She presents with active labor. BOWI. Has been tesha regularly every 5 minutes since this morning at 08:00, had a triage at around 10:00, cervix was unchanged after 2 hours at 3 cm; advised to go home and rest until more active. Contractions more intense in the last hour, every 3 minutes. Her course has been largely uncomplicated. Pregravid BMI 46, patient has managed her weight well during this with a net 8 pound weight loss. She has followed a prophylactic diabetic diet. A1c on 09/18/2020 was 4.9. 1 hour Glucola on 01/29/2021 was 107. EFW at 34w6d was 72%, 2325 grams. She has taken a prophylactic aspirin 81 mg daily since 12 weeks, blood pressures and urine proteins have been normal. labs significant for A negative blood type, status post RhoGAM at 29 weeks, antibody negative on 08/14/2020 and again on 03/26/2021. 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 She is varicella nonimmune. LABS/IMAGING: ABO A negative, antibody negative on 08/14/2020 and 03/26/2021. Rubella immune. Hepatitis-B surface antigen negative. HIV, HSV 1 negative. HSV 2 positive. GC/chlamydia negative. Treponemal antibody negative. Varicella titer Negative. Pap smear incomplete secondary to obscuring blood; HPV DNA negative on 09/12/2020. Urine culture negative on 09/12/2020. Hemoglobin/hematocrit 12.9/37.4 on 08/14/2020. Repeat hemoglobin/hematocrit 11.9/34.6 on 01/29/21. TSH within normal limits. 1 hour Glucola 107 on 01/29/2021. GBS negative on on 03/26/2021. NIPT negative, 09/18/2020. Dating US: 09/18/2020, CECILIA 04/16/2021 Growth US: 10/28/2020, normal interval growth Anatomy Scan: 11/27/2020, normal Growth US: 02/26/2021, 34w6d, normal interval growth, EFW 72%, 2325 g OBSTETRIC HISTORY: GYNECOLOGICAL HISTORY: None PAST MEDICAL HISTORY: Morbid obesity Depression PAST SURGICAL HISTORY: Tonsillectomy and adenoidectomy FAMILY HISTORY: Father: Suicide, drug use Mother: Depression, hypertension, diabetes SOCIAL HISTORY: Single. FOB/boyfriend, Kingsley [place], involved and supportive. 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 [facility] Medical History Healthy adult Surgical History Hx of appendectomy Family History Grandmother Diabetes mellitus Social History marital status: unmarried,living together household members: significant other and family occupational status: employed Smoking Status: Never smoker alcohol intake: current Meds Home Medications and Allergies Home Medications Medication Instructions Recorded Confirmed Type norgestimate 0.25 mg-ethinyl 1 tab PO DAILY 01/20/20 01/30/20 History estradiol 35 mcg tablet (Marija) Allergies Allergy/AdvReac Type Severity Reaction Status Date / Time No Known Drug Allergies Allergy Verified 01/30/20 09:18 Review of Systems Review of Systems Narrative: All other systems reviewed and found to be negative except for items mentioned in HPI. Exam Narrative Exam Narrative: General: NAD Skin: Color unremarkable, no rash nor lesions HEENT: Neck supple with midline trachea Lungs: CTAB Heart: Normal rate, and regular rhythm, S1, S2 normal, no murmur, click, rub or gallop Abdomen: Gravid, soft, non-tender Extremities: No cord, no edema, no cyanosis Pelvis: Normal female external genitalia Presentation: vertex Cervix: 4/80/-2/mid/soft Monitoring: Variability: Moderate Baseline: 160s Accelerations: Present Decelerations: Few variables with good recovery Contractions: Every 3 minutes Strength: Moderate Objective Labs Result Diagrams: 04/20/21 21:20 Assessment and Plan Assessment and Plan Assessment and Plan narrative: 1. IUP at 40w4d 2. 3. Active Labor 4. Post-dates 5. Morbid obesity 6. Rh negative 7. HSV 2 positive 8. Varicella non-immune Plan: Admit to Labor and delivery with routine orders. Mom has been nauseated throughout the day, not able to keep fluids down, deydrated. Initial and maternal tachycardia upon presentation, now resolving with fluid bolus, will give another 1 L of fluids and watch closely. Epidural just placed, first attempt was intrathecal, patient resultant headache. Will watch closely and treat symptoms with pain medication, caffeine, and positioning. Anticipate vaginal delivery. Questions answered, appropriate consents will be signed.
[2021-04-20] MEDS: LACTATED RINGERS 1,000 ML 100 ML IV ×2 (21:20→22:30)
[2021-04-20 21:46] LABS: Add Manual Diff / Slide Review NO; Basophils Absolute Auto 0 /uL (0-100); Basophils Percent Auto 0.1 % (0-2); Eosinophils Absolute Auto 0 /uL (0-450); Hematocrit 35.7 % (36-46); Lymphocytes Absolute Auto 1600 /uL (1100-4500); Lymphocytes Percent Auto 6.9 % (25-40); Mean Corpuscular HGB Conc 33.5 % (30-36); Mean Corpuscular Hemoglobin 31.5 PG (26-34); Monocytes Absolute Auto 700 /uL (0-900); Monocytes Percent Auto 2.9 % (3-14); Neutrophils Absolute Auto 20400 /uL (1500-7000); Neutrophils Percent Auto 90.1 % (50-75); Platelet Count 235 X10^3/uL (150-400); Red Blood Cell Count 3.79 X10^6/uL (4.0-5.2); Red Cell Distribution Width 12.6 % (11.6-14.8); White Blood Cell Count 22.7 X10^3/uL (4.5-11.0)
[2021-04-20 22:32] LABS: COVID19 - ADMIT (NP swab/PCR) Negative (Negative)
[2021-04-20 23:50] VITALS: BP 134/82
--- NOTE | 2021-04-21 04:20 | PM.OBPNLAB ---
Date/Time Date Patient Seen: 04/21/21 Time Patient Seen: 04:20 Pain Control Pain control: epidural Comments: Mother doing well, had some rest. Denies nausea or pain. Second epidural required after first found not to be working, placed at around 03:00. Nursing reports 8 cm dilation and bulging bag. Patient feeling pressure. Pelvic Exam Dilation (cm): 8.5 Effacement (%): 100 station: 0 Amniotic membrane status: Ruptured (thin meconium) Contractions Date/Time contractions began: 08:00 Contractions on admission: regular Monitor mode: External Contraction frequency (min): 3 Contraction duration (min): 1 Contraction pattern: Regular Status Heart Rate Baseline: 155 Monitor Accelerations: Present Monitor Decelerations: Late (x1 with recovery) and Variable Monitor Variability: Moderate Assessment and Plan Assessment: active labor Plan: continuous present management Comments: AROM now with thin meconium. Both maternal and heart rate responded well to fluid bolus, will give additional 500 cc now. Anticipate .
[2021-04-21] MEDS: LACTATED RINGERS 1,000 ML 100 ML IV ×2 (04:38→06:45)
--- NOTE | 2021-04-21 05:51 | PM.OBPNLAB ---
Date/Time Date Patient Seen: 04/21/21 Time Patient Seen: 05:52 Pain Control Pain control: epidural Comments: Feeling pushy. Pelvic Exam Dilation (cm): 9.5 Effacement (%): 100 station: +2 Amniotic membrane status: Ruptured (thin meconium) Contractions Monitor mode: External Contraction frequency (min): 3 Contraction duration (min): 1 Contraction pattern: Regular Contraction intensity: Moderate Status Heart Rate Baseline: 160 Monitor Accelerations: Present Monitor Decelerations: Early and Variable Monitor Variability: Moderate Assessment and Plan Assessment: active labor Plan: continuous present management Comments: Anterior lip remaining, patient now on right side, anticipate starting to push in a few minutes. Anticipate .
--- NOTE | 2021-04-21 08:11 | PM.OBPRVD ---
Labor & Delivery Delivery date: 04/21/21 Intrapartal Events: Anesthetic Complications Cervical ripening method: none Induction method: none Delivery augmentation: rupture of membranes Delivery monitor: external FHT Route of delivery: Episiotomy description: None L&D Laceration Description: Perineal - 2nd Degree Delivery repair: vicryl (3-0) Estimated blood loss (mL): 300 Anesthesia Type: Epidural Complications: none Narrative: On 04/21/2021, this 25 year old , GBS negative female under epidural anesthesia delivered a viable male infant with unknown weight and scores of 9/9. Delivery was via normal spontaneous vaginal delivery at 06:58. Nuchal cord x 1 was reduced. Cord clamped and cut and infant handed to mother in attendance. Cord blood sent for analysis. Intact placenta with three-vessel cord was delivered spontaneously at 07:15. 20 mg of IV Pitocin administered. Uterus, cervix, vagina, and rectum explored and second-degree laceration noted; repaired with 3-0 Vicryl in the usual fashion. There was a small excoriation at the clitoral collier that was left unrepaired. Estimated blood loss 300 cc. Patient remained in the delivery room in stable condition. remained in the delivery room stable condition.
[2021-04-21] MEDS: DERMOPLAST SPRAY 20% 60 ML 1 SPRAY TOP (09:27)
[2021-04-21] MEDS: IBUPROFEN 600 MG TABLET PO ×2 (09:27→16:37)
[2021-04-21] MEDS: DOCUSATE 100 MG CAPSULE PO (09:28)
[2021-04-21] MEDS: PRENATAL VIT,CALC/IRON/FOLIC 1 TABLET 1 TAB PO (09:28)
[2021-04-21] MEDS: ACETAMINOPHEN 325 MG TABLET 650 MG PO ×2 (09:28→16:36)
[2021-04-21 19:45] LABS: Add Manual Diff / Slide Review NO; Basophils Absolute Auto 0 /uL (0-100); Basophils Percent Auto 0.1 % (0-2); Eosinophils Absolute Auto 0 /uL (0-450); Eosinophils Percent Auto 0.1 % (2-4); Hematocrit 29.4 % (36-46); Lymphocytes Absolute Auto 2500 /uL (1100-4500); Lymphocytes Percent Auto 11.1 % (25-40); Mean Corpuscular HGB Conc 34.1 % (30-36); Mean Corpuscular Hemoglobin 32.3 PG (26-34); Mean Corpuscular Volume 94.7 fL (80-100); Monocytes Absolute Auto 1700 /uL (0-900); Monocytes Percent Auto 7.8 % (3-14); Neutrophils Absolute Auto 18100 /uL (1500-7000); Neutrophils Percent Auto 80.9 % (50-75); Platelet Count 230 X10^3/uL (150-400); Red Blood Cell Count 3.11 X10^6/uL (4.0-5.2); Red Cell Distribution Width 12.9 % (11.6-14.8); White Blood Cell Count 22.4 X10^3/uL (4.5-11.0)
[2021-04-22 06:19] LABS: Add Manual Diff / Slide Review NO; Basophils Absolute Auto 0 /uL (0-100); Basophils Percent Auto 0.3 % (0-2); Eosinophils Absolute Auto 100 /uL (0-450); Eosinophils Percent Auto 0.3 % (2-4); Hematocrit 29.6 % (36-46); Hemoglobin 9.8 g/dL (12.0-16.0); Lymphocytes Absolute Auto 3100 /uL (1100-4500); Mean Corpuscular HGB Conc 33.2 % (30-36); Mean Corpuscular Hemoglobin 31.6 PG (26-34); Mean Corpuscular Volume 95.4 fL (80-100); Monocytes Absolute Auto 1300 /uL (0-900); Monocytes Percent Auto 7.3 % (3-14); Neutrophils Absolute Auto 13500 /uL (1500-7000); Neutrophils Percent Auto 75.1 % (50-75); Platelet Count 208 X10^3/uL (150-400); Red Blood Cell Count 3.11 X10^6/uL (4.0-5.2); Red Cell Distribution Width 13.3 % (11.6-14.8); White Blood Cell Count 17.9 X10^3/uL (4.5-11.0)
--- NOTE | 2021-04-22 06:46 | PM.OBDS.1 ---
Discharge Providers Provider Date of admission: 04/20/21 20:27 Discharge Date: 04/22/21 Primary care physician: Laina Coon MD Consults: 04/22/21 08:06 Consult to Rendering Equipment Tender Routine Comment: Discharge provider: Laina Coon MD Summary Hospital Course Date Patient Seen: 04/22/21 Time Patient Seen: 06:39 Diagnoses: 1.? Status post at 40w5d 2.? 3.? Post-dates 5.? Morbid obesity 6.? 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 Varicella non-immune Hospital Course: Mother's course was remarkable for transient tachycardia and dehydration upon presentation. She was bolused with 2 liters of fluid and heart rate normalized. Presenting WBC was 22.7; upon recheck 12 hours after delivery, it was 22.4 and is now 17.7. AROM completed approximately 2.5 hours prior to delivery, thin meconium. She has been afebrile throughout intrapartum and course and denies any recent illness. COVID negative upon admission. No known sick contacts. She required three epidural placements and there was concern for a spinal heachahe after the first failed attempt; however, she denies headache and is able to ambulate without headache pain or dizziness. Tolerating full diet with no nausea or vomiting. Pain controlled with medication. Has voided without difficulty and passed gas. Lochia less than menses. Baby had respiratory distress approximately 5 hours after and required transfer to NICU. Initially, breast-feeding went very well, with 2 excellent feeds lasting approximately 1 hour each in the first 2 hours of life, then baby started grunting and retracting and had a loss of suck. Mother is producing excellent amounts of colustrum and has been pumping overnight. She has received RhoGAM. On day of discharge, now approximately 24 hours after delivery, she is afebrile with stable vital signs throughout, WBC is trending down, and H/H are stable. Planned follow-up in 6 weeks, sooner as needed. Peripartum Data Infant Delivery Method: Natural Vaginal Laceration Description: Perineal - 2nd Degree Episiotomy description: None Procedures: , 04/21/21, Dr. Coon, no complications complications: none Status at Discharge Cognitive/behavioral status at discharge: at baseline, oriented Functional status at discharge: independent ambulation Overall status at discharge: patient is progressing back to baseline Time Spent with Patient Time attestation: Total time spent providing and/or coordinating discharge services: 35 minutes. Objective Labs Result Diagrams: 04/22/21 06:10 Labs: Laboratory Results - last 24 hr 04/20/21 04/20/21 04/20/21 21:20 21:20 21:20 WBC 22.7 H RBC 3.79 L Hgb 12.0 Hct 35.7 L MCV 94.0 MCH 31.5 MCHC 33.5 RDW 12.6 Plt Count 235 Neut % (Auto) 90.1 H Lymph % (Auto) 6.9 L Catron % (Auto) 2.9 L Eos % (Auto) 0.0 L Baso % (Auto) 0.1 Neut # (Auto) 71905 H Lymph # (Auto) 1600 Catron # (Auto) 700 Eos # (Auto) 0 Baso # (Auto) 0 SARS-CoV-2 (PCR) Negative Blood Type A Negative Antibody Screen Negative Exam Narrative Exam Narrative: General: NAD Skin: Color unremarkable, no rash nor lesions HEENT: Neck supple with midline trachea Lungs: CTAB Heart: Normal rate and regular rhythm, S1, S2 normal, no murmurs, click, rub or gallop Abdomen: FF, U-1, soft, non-tender, +BS Extremities: No edema, no cyanosis Discharge Plan Discharge Plan Patient Disposition: Home Discharge orders & Medications Prescriptions: New docusate sodium 100 mg Capsule 100 mg PO BID PRN (Reason: constipation) Qty: 60 RF: 1 ibuprofen 600 mg Tablet 600 mg PO Q6HR PRN (Reason: Pain, Mild (1-3)) Qty: 90 RF: 1 Prenatabs Rx 29 mg iron- 1 mg Tablet 1 tab PO DAILY Qty: 90 RF: 3 Continued prenat.vits,luis fernando,[id number] Tablet 1 tab PO BEDTIME RF: 0 Discontinued aspirin 81 mg Capsule 81 mg PO DAILY RF: 0 acyclovir 400 mg tablet RF: 0 Follow up/Referrals: Laina Coon MD [Primary Care Provider] - 06/04/21 11:30 am (Call MD with any questions or concerns ) Diet/Activity/Treatments Diet: Diet as Tolerated Activity: 1. Use wheelchair while ambulating in the hospital. When baby is discharged, may ambulate as tolerated. 2. Routine care 3. No driving for 2 weeks. 4. Call or return for uncontrolled pain, fever, intractable nausea or vomiting, trouble with urination, heavy vaginal bleeding greater than 1 pad per hour, suicidal/homicidal thoughts, signs or symptoms of infection, or any other concerns. Skin/Wound/Dressing Care Report to your healthcare provider any signs of infection, such as:: chills, fever, increased pain, unusual drainage and unusual redness Visit Report/Discharge Packet Instructions: DI for Labor and Delivery, Vaginal Stand Alone Forms: Discharge: Care Discharge Data Primary Care Provider: Laina Coon
[2021-04-22 07:57] VITALS: BP 134/82; PULSE 80; RESP 18; TEMP 36.3
[2021-04-22] MEDS: ACETAMINOPHEN 325 MG TABLET 650 MG PO (09:45)
[2021-04-22] MEDS: IBUPROFEN 600 MG TABLET PO (09:45)
[2021-04-22] MEDS: DOCUSATE 100 MG CAPSULE PO (09:45)
[2021-04-22] MEDS: RHO(D) IMMUNE GLOBULIN 1,500 UNIT SYRINGE 1500 UNIT IM (10:00)
== END 2021-04-22 10:20 | disposition home or self-care (01) | DRG 805 ==
PROVIDERS: Admitting Provider Student in an Organized Health Care Education/Training Program; PCP Student in an Organized Health Care Education/Training Program; Referring Provider Student in an Organized Health Care Education/Training Program; Visit Provider Student in an Organized Health Care Education/Training Program
DX: O48.0 Post-term pregnancy (principal); O99.42 Diseases of the circulatory system complicating childbirth; Z37.0 Single live birth; O98.32 Other infections with a predominantly sexual mode of transmission complicating childbirth; R00.0 Tachycardia, unspecified; Z3A.40 40 weeks gestation of pregnancy; B00.9 Herpesviral infection, unspecified; O70.1 Second degree perineal laceration during delivery; O69.81X0 Labor and delivery complicated by cord around neck, without compression, not applicable or unspecified; O99.891 Other specified diseases and conditions complicating pregnancy; E86.0 Dehydration; O99.213 Obesity complicating pregnancy, third trimester; E66.01 Morbid (severe) obesity due to excess calories; O77.0 Labor and delivery complicated by meconium in amniotic fluid; Z20.822 Contact with and (suspected) exposure to COVID-19
CPT/HCPCS: 01967; 36415; 59025; 59050; 85025; 85461; 86850; 86900; 86901; 87635; C9803; G0378; G0379; J2300; J2790

== ENCOUNTER → 2022-02-23 18:25 | Outpatient (CLI) | payer OTHER, MEDICAID, SELFPAY ==
[2020-01-20 04:39] VITALS: BMI 44.1
[2022-02-23 18:50] LABS: COVID19 -Nasal RAPID Negative (Negative)
== END ==
PROVIDERS: PCP Student in an Organized Health Care Education/Training Program; Visit Provider Student in an Organized Health Care Education/Training Program
DX: Z20.822 Contact with and (suspected) exposure to COVID-19 (principal)
CPT/HCPCS: 87635